=== PATIENT | female | born 2000 | race Caucasian/White ===

== ENCOUNTER 2022-04-01 23:34 | Emergency (ER) | payer OTHER ==
[2022-04-02] VITALS: BP 120/83; PULSE 89; RESP 18; TEMP 98.5; BMI 18.8
[2022-04-02] MEDS ORDERED: DIPHTH,PERTUSS(ACELL),TET 0.5 ML DISP.SYRIN IM ONE ×3 (02:22→02:43)
== END 2022-04-02 04:43 | disposition short-term general hospital (02) ==
LOC: JER 23:34
PROC: 3E0234Z Introduction of Serum, Toxoid and Vaccine into Muscle, Percutaneous Approach (ICD-10-PCS; principal; 2022-04-02)
DX: S01.551A Open bite of lip, initial encounter (principal); W54.0XXA Bitten by dog, initial encounter
CPT/HCPCS: 0241U-QW; 90471; 90715; 99285-25